=== PATIENT | female | born 1930 | race Caucasian/White ===

== ENCOUNTER 2018-05-11 19:04 | Emergency (ER) | payer MEDICARE ==
[2018-05-11 19:40] VITALS: BP 140/49
--- NOTE | 2018-05-11 19:59 | UC ---
Hand/Wrist HPI - HPI Summary HPI Summary: Patient states that she roused morning with some swelling on the palm surface of her left hand. it was slowly getting worse and spreading in the wrist ; however, over the past 3 hours the palm of her hand and corresponding wrist his abruptly gotten worse with much more swelling plus the areas have become warm and pink. patient notes it is difficult to bend the wrist and make a fist in part due to the swelling but also from the discomfort. Again she denies any history of injury or overuse. she denies any other arthralgia. She denies any fever or chills and offers no other complaints. She was admitted to the hospital 2 weeks ago for a pulmonary embolus and is currently on Coumadin. She denies any history of gout. - History Of Current Complaint Chief Complaint: UCUpperExtremity Stated Complaint: LEFT WRIST PAIN/SWELLING Time Seen by Provider: 05/11/18 19:31 Hx Obtained From: Patient, Family/Squad Boss Onset/Duration: Gradual Onset Pain Intensity: 5 Aggravating Factor(s): Movement Alleviating Factor(s): Nothing Associated Signs And Symptoms: Positive: Swelling, Redness. Negative: Bruising , Fever, Weakness, Numbness/Tingling - Allergies/Home Medications Allergies/Adverse Reactions: Allergies Allergy/AdvReac Type Severity Reaction Status Date / Time niacin Allergy Rash Verified 05/11/18 19:29 Home Medications: Home Medications Amiodarone TAB* [Cordarone Tab*] 1 tab DAILY 05/11/18 [History Confirmed ] Atorvastatin* [Lipitor 20 MG*] 1 tab DAILY 05/11/18 [History Confirmed 05/11/18] Cholecalciferol (Vitamin D3) [Vitamin D3] 1 cap DAILY 05/11/18 [History Confirmed 05/11/18] Cyanocobalamin TAB* [Vitamin B12 TAB*] 1 cap DAILY 05/11/18 [History Confirmed 05/11/18] Levothyroxine TAB* [Synthroid 88 MCG TAB*] 1 tab DAILY 05/11/18 [History Confirmed 05/11/18] NIFEdipine ER TAB* [Procardia Xl TAB*] 1 tab DAILY 05/11/18 [History Confirmed 05/11/18] Pantoprazole TAB (NF) [Protonix TAB (NF)] 1 tab DAILY 05/11/18 [History Confirmed 05/11/18] Polyethylene Glycol 3350* [Miralax*] 1 packet DAILY PRN 05/11/18 [History Confirmed 05/11/18] Torsemide 1 tab DAILY 05/11/18 [History Confirmed 05/11/18] Vit A/Vit C/Vit E/Zinc/Copper [Preservision Areds Softgel] 1 cap DAILY 05/11/18 [History Confirmed 05/11/18] Warfarin TAB(*) [Coumadin TAB(*)] 2 mg SEE INSTRUCTIONS 05/11/18 [History Confirmed 05/11/18] PMH/Surg Hx/FS Hx/Imm Hx - Additional Past Medical History Additional PMH: PE Endocrine History: Thyroid Disease, Dyslipidemia Cardiovascular History: Hypertension, Other - murmur Other Cardiovascular History: murmur - Surgical History Surgical History: Yes Surgery Procedure, Year, and Place: Spinal stenosis; Carotid bypass; Subclavian bypass; duodenal perforation - Family History Known Family History: Positive: Unknown - Social History Occupation: Retired Alcohol Use: Occasionally Substance Use Type: None Smoking Status (MU): Never Smoked Tobacco - Immunization History Vaccination Up to Date: Yes Review of Systems Constitutional: Negative Skin: Negative Eyes: Negative ENT: Negative Respiratory: Negative Cardiovascular: Negative Gastrointestinal: Negative Genitourinary: Negative Motor: Negative Neurovascular: Negative Musculoskeletal: Other: - pain/swelling L wrist/hand Neurological: Negative Psychological: Negative Is Patient Immunocompromised?: No All Other Systems Reviewed And Are Negative: Yes Physical Exam Triage Information Reviewed: Yes Appearance: Well-Appearing Vital Signs: Initial Vital Signs Temp 98.6 F 05/11/18 19:30 Pulse 84 05/11/18 19:30 Resp 14 05/11/18 19:30 BP 140/49 05/11/18 19:30 Pulse Ox 100 05/11/18 19:30 Vital Signs Reviewed: Yes Eyes: Positive: Conjunctiva Clear ENT: Positive: Normal ENT inspection Neck: Positive: Supple, Nontender, No Lymphadenopathy Respiratory: Positive: Lungs clear, Normal breath sounds Cardiovascular: Positive: RRR, Pulses Normal, Other: - Murmur throughout 6 Abdomen Description: Positive: Nontender, No Organomegaly, Soft Bowel Sounds: Positive: Present Musculoskeletal: Positive: Edema @ - BLE'S, mild and unchanged, Other: - Left upper extremity exam: Shoulder and elbow without deformity or tenderness. Volar wrist and palmar surface of the hand have mild to moderate swelling, pink discoloration, warmth and mildly tender to palpation. Hand and wrist have full sensorivascular motor function; however, patient notes discomfort in the joints while doing so. Neurological: Positive: Alert Psychological: Positive: Age Appropriate Behavior Skin Exam: Normal Hand/Wrist Course/Dx - Course Course Of Treatment: Patient is nontoxic; however, differential includes cellulitis, early septic joint and doubtful hemorrhagic joint given new use of Coumadin. Patient requires ER transfer for higher level of care and evaluation. Patient is agreeable to go and friend at bedside is going to drive her. [facility] called. Report given to Mr. Mares ANN MARIE. Advised of acute nontraumatic wrist and hand swelling with acute worsening and 3 hours associated with red and warmth. Advised coming by private vehicle. - Differential Dx/Diagnosis Provider Diagnoses: Acute L volar wrist/hand edema with warmth and erythema. possible cellulitis vs early septic joint. Discharge - Sign-Out/Discharge Documenting (check all that apply): Patient Departure - Discharge Plan Condition: Stable Disposition: TRANS HIGHER LVL OF CARE FAC Referrals: Barbie Patel MD [Primary Care Provider] - Additional Instructions: LEAVE HERE AND GO DIRECTLY TO THE [facility] ER DISCUSSED - Billing Disposition and Condition Condition: STABLE Disposition: Trans Higher Lvl of Care Fac
== END 2018-05-11 20:07 | disposition short-term general hospital (02) ==
LOC: UCCORT 19:04
DX: R60.9 Edema, unspecified (principal); L53.9 Erythematous condition, unspecified; I27.82 Chronic pulmonary embolism; Z79.01 Long term (current) use of anticoagulants; E78.5 Hyperlipidemia, unspecified; I10 Essential (primary) hypertension; E03.9 Hypothyroidism, unspecified; R01.1 Cardiac murmur, unspecified
CPT/HCPCS: 99202; G0463